=== PATIENT | female | born 1980 | race Two or more races ===

== ENCOUNTER 2017-02-17 08:26 | Emergency (ER) | payer OTHER, MEDICAID ==
[2017-02-17 08:33] VITALS: BP 121/103; PULSE 84; RESP 18; TEMP 97.5; O2SAT 97
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
[2017-02-17] MEDS ORDERED: KETOROLAC 30 MG/1 ML SDV IM ONE (09:09)
== END 2017-02-17 09:32 | disposition home or self-care (01) ==
DX: S29.012A Strain of muscle and tendon of back wall of thorax, initial encounter (principal); V49.40XA Driver injured in collision with unspecified motor vehicles in traffic accident, initial encounter; Y92.410 Unspecified street and highway as the place of occurrence of the external cause; Y99.8 Other external cause status; Y93.89 Activity, other specified
CPT/HCPCS: J1885